=== PATIENT | male | born 1945 | race Caucasian/White ===

== ENCOUNTER 2018-01-08 07:55 | Inpatient (IN) | payer MEDICARE, BC ==
[~2018-01-08] VITALS: Ht 177.8 cm; Wt 92.9 kg
[~2018-01-08 07:55] MED LIST: ASPIRIN 81M81 MG/TA2 PO; CARDI-OMEGA1000 MG PO; IRON1 POW PO; KEPPRA 500MG500 MG PO; NO HOME MEDICATIONS; PEPCID 20MG TAB20 MG PO; SIMVASTATIN20 MG PO; ST. JOSEPH81 M2 PO; SUPER EPA 2002000 MG PO; VITAMIN C PURE500 M1 PO; VITAMIN D1000 IU PO; ZOCOR 20MG20 MG PO
[2018-01-08 08:23] LABS: BASO # 0.1 (0.0-0.2); EOS # 0.2 (0.0-0.7); EOS % 1.8 % (0-4.0); GRAN # 5.8 (1.4-6.5); GRAN % 61.8 % (42.2-75.2); HEMATOCRIT 49.7 % (42.0-52.0); HEMOGLOBIN 16.5 g/dl (13.5-18.0); LYMPH # 2.1 (1.2-3.4); LYMPH % 22.3 % (20.0-51.0); MEAN CELL VOLUME 96 fl (80.0-100.0); MEAN CORPUSCULAR HEMOGLOBIN 32 pg (27.0-31.0); MEAN CORPUSCULAR HGB CONC 33 g/dl (33.0-37.0); MEAN PLATELET VOLUME 9.5 fl (7.4-10.4); MONO # 1.2 (0.1-0.6); MONO % 12.8 % (1.7-9.3); PLATELET COUNT 320 K/mm3 (130-400); REDCELL DISTRIBUTION WIDTH-CV 13.4 % (11.5-14.5)
[2018-01-08 08:31] LABS: ALANINE AMINOTRANSFERASE 30 U/L (21-72); ALBUMIN 4.5 gm/dL (3.5-5.0); ALKALINE PHOSPHATASE 95 U/L (50-136); ANION GAP 11 mmol/L (7-16); AST,SGOT 28 U/L (15-37); BILIRUBIN,TOTAL 0.7 mg/dL (0.0-1.0); BLOOD UREA NITROGEN 11 mg/dL (9-20); CALCIUM 10.2 mg/dL (8.4-10.2); CARBON DIOXIDE 25 mmol/L (22-30); CHLORIDE 106 mmol/L (98-107); CREATININE, serum 1.26 mg/dL (0.66-1.25); GLUCOSE 103 mg/dL (74-106); LIPASE 100 U/L (23-300); POTASSIUM 4.4 mmol/L (3.4-5.0); PROTHROMBIN TIME 11.2 SECONDS (9.7-12.8); SODIUM 142 mmol/L (137-145); TOTAL PROTEIN 7.9 gm/dL (6.4-8.2)
[2018-01-08 08:33] LABS: PARTIAL THROMBOPLASTIN TIME 32.2 SECONDS (26.0-37.0)
[2018-01-08 08:44] LABS: TROPONIN-I < 0.012 ng/mL (0.000-0.034)
[2018-01-08 12:43] VITALS: BP 121/64; PULSE 66; TEMP 98.5
[2018-01-08 16:13] VITALS: BP 141/75; PULSE 53; TEMP 98.7
[2018-01-08 20:26] VITALS: BP 118/55; PULSE 57; TEMP 98.6
[2018-01-08 23:20] VITALS: BP 133/77; PULSE 54; TEMP 98.6
[2018-01-09 03:47] VITALS: BP 125/71; PULSE 74; TEMP 98.6
[2018-01-09 07:19] LABS: CALCIUM 9.5 mg/dL (8.4-10.2); CHOLESTEROL RISK RATIO 4.2; CREATININE, serum 1.13 mg/dL (0.66-1.25); POTASSIUM 4.2 mmol/L (3.4-5.0)
[2018-01-09 07:29] LABS: TROPONIN-I 4.77 ng/mL (0.000-0.034)
[2018-01-09 08:12] VITALS: BP 132/69; PULSE 54; TEMP 97.6
[2018-01-09 12:45] VITALS: BP 130/72; PULSE 47; TEMP 98.5
[2018-01-09 16:48] VITALS: BP 122/68; PULSE 48; TEMP 98.4
[2018-01-09 19:35] VITALS: BP 144/72; PULSE 58; TEMP 98.6
[2018-01-09 23:59] VITALS: BP 144/74; PULSE 52; TEMP 98.6
[2018-01-10 04:29] VITALS: BP 134/65; PULSE 60; TEMP 97.4
[2018-01-10 08:19] VITALS: BP 115/64; PULSE 45; TEMP 97.8
[2018-01-10 11:48] VITALS: BP 116/67; PULSE 51; TEMP 97.8
[2018-01-10 16:00] VITALS: BP 112/62; PULSE 51; TEMP 98.2
[2018-01-10 19:59] VITALS: BP 127/63; PULSE 63; TEMP 97.8
[2018-01-11] VITALS (11 sets, daily range): BP systolic 113–153; BP diastolic 68–81; PULSE 52–86; TEMP 97.8–98.4
[2018-01-12] VITALS (291 sets, daily range): BP systolic 106–146; BP diastolic 59–84; PULSE 44–77; TEMP 97–98.6; O2SAT 94–100
[2018-01-12 08:09] LABS: BASO # 0.1 (0.0-0.2); BASO % 0.9 % (0.0-2.0); EOS # 0.1 (0.0-0.7); EOS % 1.6 % (0-4.0); GRAN # 4.7 (1.4-6.5); GRAN % 59.1 % (42.2-75.2); HEMATOCRIT 46.2 % (42.0-52.0); HEMOGLOBIN 15.3 g/dl (13.5-18.0); LYMPH # 1.7 (1.2-3.4); LYMPH % 21.5 % (20.0-51.0); MEAN CELL VOLUME 97 fl (80.0-100.0); MEAN CORPUSCULAR HEMOGLOBIN 32 pg (27.0-31.0); MEAN CORPUSCULAR HGB CONC 33 g/dl (33.0-37.0); MEAN PLATELET VOLUME 10.5 fl (7.4-10.4); MONO # 1.3 (0.1-0.6); MONO % 16.6 % (1.7-9.3); PLATELET COUNT 307 K/mm3 (130-400); RED BLOOD COUNT 4.77 M/mm3 (4.20-5.60); REDCELL DISTRIBUTION WIDTH-CV 13.2 % (11.5-14.5)
[2018-01-12 08:21] LABS: CREATININE, serum 1.17 mg/dL (0.66-1.25)
[2018-01-12 09:17] LABS: PROTHROMBIN TIME 11.9 SECONDS (9.7-12.8)
[2018-01-12 09:19] LABS: PARTIAL THROMBOPLASTIN TIME 34.9 SECONDS (26.0-37.0)
[2018-01-13] VITALS (196 sets, daily range): BP systolic 96–106; BP diastolic 59–66; PULSE 48–57; TEMP 97.3–98.1; O2SAT 62–100
[2018-01-13 05:58] LABS: HEMATOCRIT 43.5 % (42.0-52.0); HEMOGLOBIN 14.4 g/dl (13.5-18.0); MEAN CELL VOLUME 98 fl (80.0-100.0); MEAN CORPUSCULAR HEMOGLOBIN 32 pg (27.0-31.0); MEAN CORPUSCULAR HGB CONC 33 g/dl (33.0-37.0); MEAN PLATELET VOLUME 10.2 fl (7.4-10.4); PLATELET COUNT 297 K/mm3 (130-400); RED BLOOD COUNT 4.45 M/mm3 (4.20-5.60); REDCELL DISTRIBUTION WIDTH-CV 13.2 % (11.5-14.5)
[2018-01-13 06:14] LABS: CALCIUM 9.7 mg/dL (8.4-10.2); CREATININE, serum 1.12 mg/dL (0.66-1.25); POTASSIUM 4.1 mmol/L (3.4-5.0)
[2018-01-13 06:16] LABS: BAND 7 % (0-10); EOSINOPHIL 1 % (0-4); LYMPHOCYTE 18 % (20.0-51.0); NEUTROPHILS 65 % (42.0-75.2); PLATELET ESTIMATE NORMAL (NORMAL)
[2018-01-13] MEDS ORDERED: ELIQUIS 5MG PO ×2 (11:10→11:12)
[2018-01-13] MEDS ORDERED: BRILINTA90 MG PO (11:12)
[2018-01-13] MEDS ORDERED: LIPITOR 80MG80 MG PO (11:13)
[2018-01-13] MEDS ORDERED: TOPROL XL 25MG25 MG PO (11:14)
[2018-01-13] MEDS ORDERED: NORVASC2.5 MG PO (11:15)
[2018-01-13] MEDS ORDERED: ASPIRIN 81M81 MG/TA2 PO (11:21)
== END 2018-01-13 12:40 | disposition home or self-care (01) | DRG 246 ==
LOC: COL.ER 07:55 → MEDICAL 10:22 → ICU 01-12 13:07
PROVIDERS: Emergency Medicine; Hospitalist; Nurse Practitioner; Physician Assistant
PROC: 027034Z Dilation of Coronary Artery, One Artery with Drug-eluting Intraluminal Device, Percutaneous Approach (ICD-10-PCS; principal; 2018-01-12)
PROC: B2010ZZ Plain Radiography of Multiple Coronary Arteries using High Osmolar Contrast (ICD-10-PCS; 2018-01-12)
PROC: 4A023N7 Measurement of Cardiac Sampling and Pressure, Left Heart, Percutaneous Approach (ICD-10-PCS; 2018-01-12)
DX: I21.4 Non-ST elevation (NSTEMI) myocardial infarction (principal); I26.99 Other pulmonary embolism without acute cor pulmonale; I82.4Z3 Acute embolism and thrombosis of unspecified deep veins of distal lower extremity, bilateral; N17.9 Acute kidney failure, unspecified; I25.10 Atherosclerotic heart disease of native coronary artery without angina pectoris; F17.210 Nicotine dependence, cigarettes, uncomplicated; Z85.46 Personal history of malignant neoplasm of prostate; I10 Essential (primary) hypertension
CPT/HCPCS: 99232-AI; 99239; A9502; C9600; G0378; J1650; J2250; J2785; J3010; J7030; Q9967

== ENCOUNTER → 2018-03-03 | Outpatient (CLI) | payer MEDICARE, BC ==
[~2018-03-03] MED LIST changes: +BRILINTA90 MG PO; +ELIQUIS 5MG PO; +LIPITOR 80MG80 MG PO; +NORVASC2.5 MG PO; +TOPROL XL 25MG25 MG PO
== END ==
LOC: COL.RAD 13:21
DX: Z13.89 Encounter for screening for other disorder (principal); I72.4 Aneurysm of artery of lower extremity

== ENCOUNTER → 2018-04-14 | Outpatient (CLI) | payer MEDICARE, BC | LOC: COL.RAD 04-07 07:30 | DX: K80.80 Other cholelithiasis without obstruction (principal); Z86.711 Personal history of pulmonary embolism | CPT/HCPCS: Q9967 ==

== ENCOUNTER 2018-04-28 12:21 | Outpatient (RCR) | payer MEDICARE, BC | END 2018-04-29 | disposition home or self-care (01) | LOC: COL.CR | DX: Z48.812 Encounter for surgical aftercare following surgery on the circulatory system (principal); Z95.5 Presence of coronary angioplasty implant and graft ==

== ENCOUNTER 2018-05-03 15:58 | Outpatient (RCR) | payer MEDICARE, BC ==
[2018-05-06] MEDS ORDERED: VITAMIN D31000 I1 PO (11:49)
[2018-05-06] MEDS ORDERED: TYLENOL 500MG500 MG PO ×2 (11:50→15:20)
[2018-05-06] MEDS ORDERED: ELIQUIS 5MG PO ×2 (15:04→15:19)
[2018-05-06] MEDS ORDERED: ASPIRIN 81M81 MG/TA2 PO (15:05)
[2018-05-06] MEDS ORDERED: LIPITOR 80MG80 MG PO (15:16)
[2018-05-06] MEDS ORDERED: TOPROL XL 25MG25 MG PO (15:17)
[2018-05-06] MEDS ORDERED: KEPPRA 500MG500 MG PO (15:17)
[2018-05-06] MEDS ORDERED: ASPIRIN E.C. 8181 MG PO (15:18)
[2018-05-06] MEDS ORDERED: BRILINTA90 MG PO (15:18)
[2018-05-06] MEDS ORDERED: NORVASC2.5 MG (15:19)
[2018-05-06] MEDS ORDERED: NORVASC2.5 MG PO (15:19)
[2018-05-09] MEDS ORDERED: FERRO-TIME325 MG PO (10:56)
[2018-05-09] MEDS ORDERED: TOPROL XL 25MG25 MG PO (10:58)
== END 2018-07-29 | disposition home or self-care (01) ==
LOC: COL.CR
DX: Z48.812 Encounter for surgical aftercare following surgery on the circulatory system (principal); Z95.5 Presence of coronary angioplasty implant and graft

== ENCOUNTER 2018-05-06 11:09 | Inpatient (IN) | payer MEDICARE, BC ==
[~2018-05-06] VITALS: Ht 177.8 cm; Wt 89.4 kg
[2018-05-06] VITALS (544 sets, daily range): BP systolic 87–126; BP diastolic 57–67; PULSE 12–88; TEMP 98.1–98.5; O2SAT 90–100
[2018-05-06 11:46] LABS: HEMATOCRIT 20.2 % (42.0-52.0); MEAN CELL VOLUME 97 fl (80.0-100.0); MEAN CORPUSCULAR HEMOGLOBIN 33 pg (27.0-31.0); MEAN CORPUSCULAR HGB CONC 34 g/dl (33.0-37.0); MEAN PLATELET VOLUME 10.5 fl (7.4-10.4); PLATELET COUNT 222 K/mm3 (130-400); RED BLOOD COUNT 2.09 M/mm3 (4.20-5.60); REDCELL DISTRIBUTION WIDTH-CV 13.8 % (11.5-14.5)
[2018-05-06 11:48] LABS: HEMOGLOBIN 6.8 g/dl (13.5-18.0)
[2018-05-06] MEDS ORDERED: VITAMIN D31000 I1 PO (11:49)
[2018-05-06] MEDS ORDERED: TYLENOL 500MG500 MG PO ×2 (11:50→15:20)
[2018-05-06 11:57] LABS: INR 1.5 (0.8-3.0); PROTHROMBIN TIME 17.4 SECONDS (9.7-12.8)
[2018-05-06 11:59] LABS: ALBUMIN 3.2 gm/dL (3.5-5.0); BILIRUBIN,TOTAL 0.3 mg/dL (0.0-1.0); CALCIUM 8.8 mg/dL (8.4-10.2); POTASSIUM 3.8 mmol/L (3.4-5.0); TOTAL PROTEIN 5.5 gm/dL (6.4-8.2)
[2018-05-06 12:00] LABS: PARTIAL THROMBOPLASTIN TIME 26.9 SECONDS (26.0-37.0)
[2018-05-06 12:08] LABS: BAND 6 % (0-10); LYMPHOCYTE 17 % (20.0-51.0); NEUTROPHILS 74 % (42.0-75.2); PLATELET ESTIMATE NORMAL (NORMAL)
[2018-05-06 12:09] LABS: HYPOCHROMIA 1+
[2018-05-06] MEDS ORDERED: ELIQUIS 5MG PO ×2 (15:04→15:19)
[2018-05-06] MEDS ORDERED: ASPIRIN 81M81 MG/TA2 PO (15:05)
[2018-05-06] MEDS ORDERED: LIPITOR 80MG80 MG PO (15:16)
[2018-05-06] MEDS ORDERED: KEPPRA 500MG500 MG PO (15:17)
[2018-05-06] MEDS ORDERED: TOPROL XL 25MG25 MG PO (15:17)
[2018-05-06] MEDS ORDERED: BRILINTA90 MG PO (15:18)
[2018-05-06] MEDS ORDERED: ASPIRIN E.C. 8181 MG PO (15:18)
[2018-05-06] MEDS ORDERED: NORVASC2.5 MG (15:19)
[2018-05-06] MEDS ORDERED: NORVASC2.5 MG PO (15:19)
[2018-05-06 18:31] LABS: HEMATOCRIT 19.9 % (42.0-52.0); HEMOGLOBIN 6.6 g/dl (13.5-18.0)
[2018-05-07] VITALS (736 sets, daily range): BP systolic 96–136; BP diastolic 56–81; PULSE 64–85; TEMP 97–98.6; O2SAT 71–100
[2018-05-07 00:47] LABS: HEMATOCRIT 21.5 % (42.0-52.0); HEMOGLOBIN 7.1 g/dl (13.5-18.0)
[2018-05-07 05:30] LABS: HEMATOCRIT 23.7 % (42.0-52.0); HEMOGLOBIN 7.8 g/dl (13.5-18.0); MEAN CELL VOLUME 94 fl (80.0-100.0); MEAN CORPUSCULAR HEMOGLOBIN 31 pg (27.0-31.0); MEAN CORPUSCULAR HGB CONC 33 g/dl (33.0-37.0); MEAN PLATELET VOLUME 10.6 fl (7.4-10.4); PLATELET COUNT 166 K/mm3 (130-400); RED BLOOD COUNT 2.53 M/mm3 (4.20-5.60); REDCELL DISTRIBUTION WIDTH-CV 16.5 % (11.5-14.5)
[2018-05-07 05:41] LABS: ANION GAP -1 mmol/L (7-16); BLOOD UREA NITROGEN 24 mg/dL (9-20); CARBON DIOXIDE 24 mmol/L (22-30); CHLORIDE 117 mmol/L (98-107); CREATININE, serum 0.95 mg/dL (0.66-1.25); GLUCOSE 93 mg/dL (74-106); SODIUM 140 mmol/L (137-145)
[2018-05-07 05:46] LABS: BAND 1 % (0-10); BASOPHIL 1 % (0-2); EOSINOPHIL 1 % (0-4); NEUTROPHILS 63 % (42.0-75.2)
[2018-05-07 05:48] LABS: ANISOCYTOSIS 1+; BURR CELLS 1+; MICROCYTOSIS 1+; POLYCHROMASIA 1+
[2018-05-07 05:49] LABS: LYMPHOCYTE 28 % (20.0-51.0); PLATELET ESTIMATE NORMAL (NORMAL)
[2018-05-07 05:52] LABS: TROPONIN-I < 0.012 ng/mL (0.000-0.034)
[2018-05-07 08:36] LABS: PATHOLOGY DIFF REVIEW OK
[2018-05-07 12:25] LABS: HEMATOCRIT 28.4 % (42.0-52.0); HEMOGLOBIN 9.5 g/dl (13.5-18.0)
[2018-05-07 18:08] LABS: HEMATOCRIT 31.2 % (42.0-52.0); HEMOGLOBIN 10.3 g/dl (13.5-18.0)
[2018-05-08] VITALS (15 sets, daily range): BP systolic 109–132; BP diastolic 45–77; PULSE 54–80; TEMP 97.4–98.6
[2018-05-08 07:54] LABS: MEAN CELL VOLUME 94 fl (80.0-100.0); MEAN CORPUSCULAR HGB CONC 33 g/dl (33.0-37.0); MEAN PLATELET VOLUME 10.7 fl (7.4-10.4); PLATELET COUNT 225 K/mm3 (130-400); RED BLOOD COUNT 2.89 M/mm3 (4.20-5.60); REDCELL DISTRIBUTION WIDTH-CV 16.9 % (11.5-14.5)
[2018-05-08 07:56] LABS: HEMATOCRIT 27.1 % (42.0-52.0); HEMOGLOBIN 8.8 g/dl (13.5-18.0); MEAN CORPUSCULAR HEMOGLOBIN 30 pg (27.0-31.0)
[2018-05-08 08:02] LABS: CALCIUM 8.9 mg/dL (8.4-10.2); CREATININE, serum 0.95 mg/dL (0.66-1.25); POTASSIUM 3.8 mmol/L (3.4-5.0)
[2018-05-08 08:44] LABS: ANISOCYTOSIS 2+; BAND 2 % (0-10); BASOPHIL 1 % (0-2); EOSINOPHIL 5 % (0-4); LYMPHOCYTE 21 % (20.0-51.0); NEUTROPHILS 65 % (42.0-75.2); PLATELET ESTIMATE NORMAL (NORMAL)
[2018-05-08 08:45] LABS: MICROCYTOSIS 1+
[2018-05-09 03:36] VITALS: BP 125/67; PULSE 76; TEMP 98
[2018-05-09 06:25] LABS: MEAN CELL VOLUME 96 fl (80.0-100.0); MEAN CORPUSCULAR HGB CONC 33 g/dl (33.0-37.0); MEAN PLATELET VOLUME 10.4 fl (7.4-10.4); PLATELET COUNT 301 K/mm3 (130-400); RED BLOOD COUNT 3.16 M/mm3 (4.20-5.60); REDCELL DISTRIBUTION WIDTH-CV 18.1 % (11.5-14.5)
[2018-05-09 06:28] LABS: HEMATOCRIT 30.2 % (42.0-52.0); HEMOGLOBIN 9.8 g/dl (13.5-18.0); MEAN CORPUSCULAR HEMOGLOBIN 31 pg (27.0-31.0)
[2018-05-09 06:36] LABS: CALCIUM 9.5 mg/dL (8.4-10.2); CREATININE, serum 1.05 mg/dL (0.66-1.25); MAGNESIUM 1.8 mg/dL (1.6-2.3); POTASSIUM 3.7 mmol/L (3.4-5.0)
[2018-05-09 07:50] VITALS: BP 123/60; PULSE 61; TEMP 98.2
[2018-05-09 07:55] LABS: ANISOCYTOSIS 1+; BAND 12 % (0-10); BASOPHIL 1 % (0-2); EOSINOPHIL 4 % (0-4); LYMPHOCYTE 24 % (20.0-51.0); NEUTROPHILS 52 % (42.0-75.2); PLATELET ESTIMATE NORMAL (NORMAL)
[2018-05-09 07:56] LABS: HYPOCHROMIA 1+
[2018-05-09] MEDS ORDERED: FERRO-TIME325 MG PO (10:56)
[2018-05-09] MEDS ORDERED: TOPROL XL 25MG25 MG PO (10:58)
== END 2018-05-09 11:34 | disposition home or self-care (01) | DRG 378 ==
LOC: COL.ER 11:09 → MEDICAL 12:34 → ICU 12:34 → EDBEDREQ 13:10 → MEDICAL 05-07 18:08
PROVIDERS: Emergency Medicine; Internal Medicine; Internal Medicine Gastroenterology; Physician Assistant
PROC: 0DBL8ZX Excision of Transverse Colon, Via Natural or Artificial Opening Endoscopic, Diagnostic (ICD-10-PCS; principal; 2018-05-08 08:15)
DX: K92.1 Melena (principal); D62 Acute posthemorrhagic anemia; E87.1 Hypo-osmolality and hyponatremia; D12.3 Benign neoplasm of transverse colon; I25.10 Atherosclerotic heart disease of native coronary artery without angina pectoris; I10 Essential (primary) hypertension; Z95.5 Presence of coronary angioplasty implant and graft; E78.5 Hyperlipidemia, unspecified; Z85.46 Personal history of malignant neoplasm of prostate; Z87.891 Personal history of nicotine dependence; I95.9 Hypotension, unspecified; Z86.711 Personal history of pulmonary embolism; Z79.01 Long term (current) use of anticoagulants; Z86.718 Personal history of other venous thrombosis and embolism; K57.30 Diverticulosis of large intestine without perforation or abscess without bleeding; K64.0 First degree hemorrhoids
CPT/HCPCS: 99223-AI; 99232-AI; 99233-AI; 99239; C9113; J2405; J2704; J2765; J7030; J7120; P9016

== ENCOUNTER 2021-02-12 18:33 | Inpatient (IN) | payer MEDICARE, BC ==
[~2021-02-12] VITALS: Ht 177.8 cm; Wt 94.6 kg
[2021-02-12] VITALS (8 sets, daily range): BP systolic 156; BP diastolic 81; PULSE 92; O2SAT 86–100
[~2021-02-12 18:33] MED LIST changes: +ASPIRIN E.C. 8181 MG PO; +FERRO-TIME325 MG PO; +NORVASC2.5 MG; +TYLENOL 500MG500 MG PO; +VITAMIN D31000 I1 PO
[2021-02-12 18:53] LABS: HEMATOCRIT 48.6 % (42.0-52.0); HEMOGLOBIN 15.9 g/dl (13.5-18.0); MEAN CELL VOLUME 100 fl (80.0-100.0); MEAN CORPUSCULAR HEMOGLOBIN 33 pg (27.0-31.0); MEAN CORPUSCULAR HGB CONC 33 g/dl (33.0-37.0); MEAN PLATELET VOLUME 10.6 fl (7.4-10.4); PLATELET COUNT 250 K/mm3 (130-400); RED BLOOD COUNT 4.84 M/mm3 (4.20-5.60); REDCELL DISTRIBUTION WIDTH-CV 13.6 % (11.5-14.5)
[2021-02-12 19:07] LABS: ALBUMIN 4.6 gm/dL (3.5-5.0); BILIRUBIN,TOTAL 1.2 mg/dL (0.0-1.0); C-REACTIVE PROTEIN 1.2 mg/dL (0.0-0.9); CALCIUM 10.4 mg/dL (8.4-10.2); CREATININE, serum 1.22 (0.66-1.25); POTASSIUM 4.6 mmol/L (3.4-5.0)
[2021-02-12 19:13] LABS: EOSINOPHIL 1 % (0-4); LYMPHOCYTE 1 % (20.0-51.0); NEUTROPHILS 94 % (42.0-75.2)
[2021-02-12 19:14] LABS: HYPOCHROMIA 1+; PLATELET ESTIMATE NORMAL (NORMAL)
[2021-02-12 19:55] LABS: COLLECTION METHOD CLEAN CATCH
[2021-02-12 20:01] LABS: PH 8 (5-8); SQUAMOUS EPITHELIAL 0-2 /hpf; URINE APPEARANCE Clear; URINE BACTERIA None Seen /hpf; URINE BILIRUBIN Negative (NEGATIVE); URINE BLOOD Negative (NEGATIVE); URINE COLOR Yellow; URINE GLUCOSE Negative (NEGATIVE); URINE KETONE Negative (NEGATIVE); URINE LEUKOCYTE ESTERASE Negative (NEGATIVE); URINE NITRATE Negative (NEGATIVE); URINE PROTEIN(semi-quant) Negative (NEGATIVE); URINE RBC 0-2 /hpf; URINE UROBILINOGEN Negative (NEGATIVE)
[2021-02-12] MEDS ORDERED: MASON NATURAL1200 MG PO (20:48)
[2021-02-12] MEDS ORDERED: VITAMIN D31000 I1 PO (20:49)
[2021-02-13] VITALS (491 sets, daily range): BP systolic 109–163; BP diastolic 55–86; PULSE 51–94; TEMP 97.4–98.4; O2SAT 89–100
--- NOTE | 2021-02-13 01:54 | NUR ---
Patient arrived to the unit at 2335 from the OR. Report received from RN and Ansthesia. Patient is awake and alert. He answers all questions appropriately. Denies any pain. Patient has epidural at this time. Skin w/d. Noted to have mid line incision (upon arrival to unit no drainage. @ 0100 check dime sized amount of drainage (area marked for monitoring)) with dressing CD&I. Lungs CTA with resp even and unlabored. Upon arrival to the unit patient on 02 @8L/Mask; 02 reduced to 5L/Mask at 0100 - 02 sats remain in the upper 90's. HR strong and regular. Abd soft; rounded with hypoactive bowel sounds. PPP. No pedal edema noted. SCD's placed as per orders. Patient has two IV sites; 20 G to right AC and 18 G to right forearm. IV started as per orders. Hospitalist made aware of patients arrival to the unit.
--- NOTE | 2021-02-13 03:32 | NUR ---
Patient continues to have 02 sats 97-99% at 5l/mask. 02 decreased to 3L/NC and he continues to maintain 02 sats 96-98%. Patient resting at this time
--- NOTE | 2021-02-13 04:18 | NUR ---
Patient resting in bed at this time. Denies any c/o pain or discomfort with the exception of "scratchy throat". Assessment remains unchanged. Dressing to midline incision remains CD&I. Slight increase in amount of drainage noted. [place] patent with clear yellow urine. Seizure pads in place. SCD's placed bilaterally
[2021-02-13 05:18] LABS: BASO # 0.1 (0.0-0.2); BASO % 0.2 % (0.0-2.0); GRAN # 26.9 (1.4-6.5); GRAN % 92.2 % (42.2-75.2); LYMPH # 0.9 (1.2-3.4); MEAN CELL VOLUME 102 fl (80.0-100.0); MEAN CORPUSCULAR HEMOGLOBIN 33 pg (27.0-31.0); MEAN CORPUSCULAR HGB CONC 33 g/dl (33.0-37.0); MEAN PLATELET VOLUME 10.3 fl (7.4-10.4); MONO # 1.1 (0.1-0.6); MONO % 3.9 % (1.7-9.3); PLATELET COUNT 198 K/mm3 (130-400); RED BLOOD COUNT 4.23 M/mm3 (4.20-5.60); REDCELL DISTRIBUTION WIDTH-CV 13.5 % (11.5-14.5)
[2021-02-13 05:27] LABS: ALBUMIN 3.4 gm/dL (3.5-5.0); BILIRUBIN,TOTAL 0.7 mg/dL (0.0-1.0); CALCIUM 9.2 mg/dL (8.4-10.2); CREATININE, serum 1.41 (0.66-1.25); POTASSIUM 4.5 mmol/L (3.4-5.0)
--- NOTE | 2021-02-13 06:30 | NUR ---
Patient sleeping at this time. He continues to deny pain/discomfort. In good spirits. Ewa - called this AM for update
--- NOTE | 2021-02-13 06:49 | NUR ---
Ansthesia in to see patient. Epidural checked. No new orders
--- NOTE | 2021-02-13 09:30 | NUR ---
PATIENT ASSISTED OUT OF BED AND TO THE RECLINER. HE HAS NO COMPLAINTS OF PAIN. HE DID EXPERIENCE SOME SMALL AMOUNT OF DIZZINESS WITH CHANGE IN POSITION. ENCOURAGED TO TAKE HIS TIME.
--- NOTE | 2021-02-13 13:36 | NUR ---
Dr. Newton here to see patient.
--- NOTE | 2021-02-13 17:00 | NUR ---
REPORT GIVEN TO RODOLFO HARVEY. PATIENT TRANSFERRED TO ROOM 346
[2021-02-14] VITALS (10 sets, daily range): BP systolic 122–159; BP diastolic 63–78; PULSE 55–79; TEMP 97.7–98.4
--- NOTE | 2021-02-14 06:27 | NUR ---
PATIENT ALERT AND ORIENTED X4. S/P EX LAP YESTERDAY. ABOMINAL DRESSING CLEAN DRY AND INTACT. EPIDURAL SITE TO LOWER BACK INTACT DENIES PAIN. DENIES NUMBNESS OR TINGLING TO LOWER EXTREMITIES. MARTEL TO GRAVITY WITH CLEAR YELLOW URINE. TOLERATES CLEAR LIQUIDS DIET, DENIES NAUSEA/VOMITING. CALL LIGHT WITHIN REACH. WILL CONTINUE TO MONITOR.
[2021-02-14 06:56] LABS: HEMATOCRIT 44.2 % (42.0-52.0); HEMOGLOBIN 14.2 g/dl (13.5-18.0); MEAN CELL VOLUME 103 fl (80.0-100.0); MEAN CORPUSCULAR HEMOGLOBIN 33 pg (27.0-31.0); MEAN CORPUSCULAR HGB CONC 32 g/dl (33.0-37.0); MEAN PLATELET VOLUME 11.5 fl (7.4-10.4); PLATELET COUNT 199 K/mm3 (130-400); RED BLOOD COUNT 4.28 M/mm3 (4.20-5.60); REDCELL DISTRIBUTION WIDTH-CV 13.8 % (11.5-14.5)
[2021-02-14 06:57] LABS: CALCIUM 9.3 mg/dL (8.4-10.2); CREATININE, serum 1.19 (0.66-1.25); POTASSIUM 4.4 mmol/L (3.4-5.0)
[2021-02-14 07:24] LABS: BAND 5 % (0-10); LYMPHOCYTE 10 % (20.0-51.0); NEUTROPHILS 73 % (42.0-75.2); PLATELET ESTIMATE NORMAL (NORMAL)
--- NOTE | 2021-02-14 12:15 | NUR ---
Patient alert and oriented, answers questions appropriately. See assessment. Abdomen soft, non tender, non distended. Bowel sounds active x4 quads. +Flatus. No bowel movement. Midline incision to abdomen with edges well approximated, no redness or drainage noted. Saavedra catheter in place, patent, draining clear yellow urine. Epidural catheter in place to mid low back, no drainage noted, secured with tegaderm and foam tape. No c/o numbness or tingling to BLE, pulses palpable. PCEA settings verified against the MAR. Patient requests saavedra catheter and epidural be removed, he would like to become more mobile and freely reposition in bed. Reviewed pain control solutions post epidural with patient and spouse, verbalized understanding. Patient also requests diet to be advanced, currently CLD. Will relay patient request to providers. No other c/o at this time.
--- NOTE | 2021-02-14 16:01 | NUR ---
qualified craft worker electrician met with patient to discuss discharge plan. Patient lives at home with his Ewa ([phone] ([phone])/ [phone] ([phone]) in [place]. Patient is fully independent on all activities of daily living with no use of medical equipment to assist with mobility. Patient's PCP is Dr. Fonseca and uses [facility] pharmacy with no difficultly affording medications. Patient states he has DNR but is unsure about a DPOA-HC. Plans to return home with his . *Discharge Plan: Home with spouse when ready*
--- NOTE | 2021-02-14 20:00 | NUR ---
PATIENT ALERT AND ORIENTED X4. PATIENT IS SITTING ON EDGE OF BED AT THIS TIME. MARTEL DC'D AND PATIENT CHANGED. BED LINENS CHANGED. PATIENT HAS IV TO RIGHT FOREARM AND RIGHT AC. PATIENT HAS MIDLINE INCISION TO ABDOMEN WITH JOSE OPEN TO AIR. EDGES WELL APPROXIMATED. PATIENT STATES HE IS PASSING GAS. PATIENT ON SEIZURE PRECAUTIONS. PATIENT DENIES PAIN OR OTHER NEEDS AT THIS TIME. CALL LIGHT WITHIN REACH. HEAD TO TOE ASSESSMENT COMPLETE.
--- NOTE | 2021-02-14 21:30 | NUR ---
PATIENT ASKED FOR DRESSING ON MIDLINE INCISION. AIRSTIP PUT ON.
[2021-02-15] VITALS (7 sets, daily range): BP systolic 118–153; BP diastolic 50–76; PULSE 53–98; TEMP 97.7–98.4
--- NOTE | 2021-02-15 05:56 | NUR ---
PATIENT DID WELL THROUGHOUT THE NIGHT. GIVEN TYLENOL PER ORDERS FOR PAIN. GIVEN PILLOW AND WARM BLANKET TO SPLINT ABDOMINAL INCISION. PATIENT INDEPENDENT IN ROOM THROUGHOUT NIGHT. PATIENT DENIES ANY FURTHER NEEDS AT THIS TIME. WILL REPORT TO DAY SHIFT.
[2021-02-15 07:20] LABS: HEMATOCRIT 43.7 % (42.0-52.0); MEAN CELL VOLUME 102 fl (80.0-100.0); MEAN CORPUSCULAR HEMOGLOBIN 33 pg (27.0-31.0); MEAN CORPUSCULAR HGB CONC 32 g/dl (33.0-37.0); MEAN PLATELET VOLUME 11.1 fl (7.4-10.4); PLATELET COUNT 241 K/mm3 (130-400); REDCELL DISTRIBUTION WIDTH-CV 13.8 % (11.5-14.5)
[2021-02-15 07:29] LABS: CALCIUM 9.2 mg/dL (8.4-10.2); CREATININE, serum 1.17 (0.66-1.25); MAGNESIUM 1.8 mg/dL (1.6-2.3); POTASSIUM 3.8 mmol/L (3.4-5.0)
[2021-02-15 08:33] LABS: BAND 8 % (0-10); BASOPHIL 1 % (0-2); EOSINOPHIL 3 % (0-4); LYMPHOCYTE 14 % (20.0-51.0); NEUTROPHILS 62 % (42.0-75.2); PLATELET ESTIMATE NORMAL (NORMAL)
[2021-02-15 08:34] LABS: SCHISTOCYTES 1+
--- NOTE | 2021-02-15 16:32 | NUR ---
First visit from the platinum and palladium kettle tender. No needs right now.
--- NOTE | 2021-02-15 19:28 | NUR ---
REPORT RECEIVED FROM NURSE UGALDE. PATIENT RECIEVED SITTING IN BED ALERT AND ORIENTD WITH LEGS FOLDING UNDER BELLY. PATIENT REPORT THAT THIS POSITION HELP WITH THE PAIN. REPORT MINIMAL PAIN AT THIS TIME. MILD NAUSEA ZOFRAN GIVEN BY PREVIOUS NURSE. CALL LLIGHT WITHIN REACH. WILL CONTINUE TO MONITOR.
--- NOTE | 2021-02-15 20:09 | NUR ---
Patient has done well today. He ambulated the halls today & did well. Tylenol has managed pain. Tolerating low fiber diet, reports he overate at lunch & did not want dinner. He showered today, airstrip to midline incision. Simón intact, patient prefers incision to be covered. Ivf antibioitcs per orders. He has been in good spirits. Night nurse to resume cares
[2021-02-16 03:10] VITALS: BP 139/70; PULSE 73; TEMP 98.1
--- NOTE | 2021-02-16 07:15 | NUR ---
Patient sitting at edge of bed. Awake & alert. Breakfast ordered, denies nausea. Hopeful for discharge home today. Denies the need for pain medication, reports feeling better than yesterday. Abdomen soft, passing flatus, denies BM. Midline airstrip dressing CDI. Will monitor.
[2021-02-16 07:48] VITALS: BP 154/79; PULSE 62; TEMP 97.5
[2021-02-16] MEDS ORDERED: AMOXICILLIN 8751 TAB PO (09:49)
[2021-02-16] MEDS ORDERED: NORCO 325 MG-51 TAB PO (09:49)
--- NOTE | 2021-02-16 09:59 | NUR ---
Patient ambulating the halls with his . rounded. Plans for discharge once we get labs resulted.
[2021-02-16 10:06] LABS: BASO # 0.1 (0.0-0.2); BASO % 0.6 % (0.0-2.0); EOS # 0.4 (0.0-0.7); EOS % 3.6 % (0-4.0); GRAN # 6.8 (1.4-6.5); GRAN % 65.1 % (42.2-75.2); HEMATOCRIT 45.4 % (42.0-52.0); HEMOGLOBIN 14.9 g/dl (13.5-18.0); LYMPH # 1.7 (1.2-3.4); LYMPH % 16.6 % (20.0-51.0); MEAN CELL VOLUME 99 fl (80.0-100.0); MEAN CORPUSCULAR HEMOGLOBIN 33 pg (27.0-31.0); MEAN CORPUSCULAR HGB CONC 33 g/dl (33.0-37.0); MEAN PLATELET VOLUME 10.2 fl (7.4-10.4); MONO # 1.4 (0.1-0.6); MONO % 13.5 % (1.7-9.3); PLATELET COUNT 292 K/mm3 (130-400); RED BLOOD COUNT 4.57 M/mm3 (4.20-5.60); REDCELL DISTRIBUTION WIDTH-CV 13.4 % (11.5-14.5)
[2021-02-16 10:22] LABS: CALCIUM 10.1 mg/dL (8.4-10.2); CREATININE, serum 1.25 (0.66-1.25); POTASSIUM 3.8 mmol/L (3.4-5.0)
--- NOTE | 2021-02-16 11:33 | NUR ---
Patient ready for discharge. All discharge information reviewed with patient & his . Med list reviewed with last dose take. Diet & activity restrictions reviewed. Int x2 DC. Incisions cares discussed with signs & symptoms of infection reviewed. Patient ambulated out with all belongings. His taking him home.
== END 2021-02-16 11:39 | disposition home or self-care (01) | DRG 854 ==
LOC: COL.ER 18:33 → ICU 21:02 → SURG 02-13 18:42
PROVIDERS: Internal Medicine; Nurse Practitioner; Physician Assistant; Student in an Organized Health Care Education/Training Program; ADMIT Surgery
PROC: 0DBA0ZZ Excision of Jejunum, Open Approach (ICD-10-PCS; principal; 2021-02-12 22:00)
DX: A41.9 Sepsis, unspecified organism (principal); K56.609 Unspecified intestinal obstruction, unspecified as to partial versus complete obstruction; K57.12 Diverticulitis of small intestine without perforation or abscess without bleeding; K55.9 Vascular disorder of intestine, unspecified; I10 Essential (primary) hypertension; G40.909 Epilepsy, unspecified, not intractable, without status epilepticus; D50.0 Iron deficiency anemia secondary to blood loss (chronic); R14.0 Abdominal distension (gaseous); Z66 Do not resuscitate; Z95.818 Presence of other cardiac implants and grafts; Z79.82 Long term (current) use of aspirin; Z87.891 Personal history of nicotine dependence; Z86.718 Personal history of other venous thrombosis and embolism; Z86.711 Personal history of pulmonary embolism
CPT/HCPCS: 99232-AI; 99233-AI; A4314; A9284; J1100; J1170; J1650; J1953; J2250; J2370; J2405; J2543; J2704; J3010; J7030; J7120; Q9967

== ENCOUNTER 2024-02-02 13:56 | Emergency (ER) | payer MEDICARE, BC ==
[~2024-02-02] VITALS: Ht 177.8 cm; Wt 79.1 kg
[~2024-02-02 13:56] MED LIST changes: +AMOXICILLIN 8751 TAB PO; +MASON NATURAL1200 MG PO; +NORCO 325 MG-51 TAB PO
[2024-02-02 14:05] VITALS: TEMP 97.5
[2024-02-02 14:34] LABS: BASO # 0.1 K/mm3 (0.0-0.2); BASO % 0.9 % (0.0-2.0); EOS # 0.2 K/mm3 (0.0-0.7); EOS % 1.7 % (0.0-4.0); GRAN # 7.3 K/mm3 (1.4-6.5); GRAN % 66.6 % (42.2-75.2); HEMATOCRIT 46.1 % (42.0-52.0); HEMOGLOBIN 15.3 g/dl (13.5-18.0); LYMPH # 1.9 K/mm3 (1.2-3.4); LYMPH % 17.6 % (20.0-51.0); MEAN CELL VOLUME 96 fl (80.0-100.0); MEAN CORPUSCULAR HEMOGLOBIN 32 pg (27-31); MEAN CORPUSCULAR HGB CONC 33 g/dl (33.0-37.0); MEAN PLATELET VOLUME 10.6 fl (7.4-10.4); MONO # 1.4 K/mm3 (0.1-0.6); MONO % 12.9 % (1.7-9.3); PLATELET COUNT 232 K/mm3 (130-400); RED BLOOD COUNT 4.78 M/mm3 (4.20-5.60); REDCELL DISTRIBUTION WIDTH-CV 13.6 % (11.5-14.5)
[2024-02-02 14:48] LABS: BILIRUBIN,TOTAL 0.6 mg/dL (0.2-1.2); CALCIUM 10.2 mg/dL (8.4-10.2); CREATININE, serum 1.07 mg/dL (0.72-1.25); POTASSIUM 4.1 mEq/L (3.5-4.5)
[2024-02-02] MEDS ORDERED: Iohexol 300 - 100 ML VIAL IV ONE (15:06)
[2024-02-02] MEDS ORDERED: NS 100 ML IV SCH (15:07)
[2024-02-02 16:30] VITALS: BP 148/75; PULSE 71
== END 2024-02-02 16:30 | disposition home or self-care (01) ==
LOC: COL.ER 13:56
PROVIDERS: Emergency Medicine
DX: K40.90 Unilateral inguinal hernia, without obstruction or gangrene, not specified as recurrent (principal)
CPT/HCPCS: Q9967